=== PATIENT | female | born 1970 | race Caucasian/White ===

== ENCOUNTER → 2017-02-21 | Outpatient (CLI) | payer BC ==
--- NOTE | 2017-02-21 20:14 | Diagnostic Imaging Report ---
Bilateral diagnostic mammogram with tomography. The current study was also evaluated with a Computer Aided Detection (CAD) system. COMPARISON: 10/28/2015. INDICATION: Left breast pain in the periareolar region. FINDINGS: The breasts are composed of scattered fibroglandular densities. There is no mass, architectural distortion, or suspicious cluster of calcifications. Allowing for technique and positional differences, no suspicious change is seen. IMPRESSION: Stable mammographic findings with no evidence of malignancy. Ultrasound evaluation pending. ACR BI-RADS Category 0: Incomplete. (Needs additional imaging evaluation). Result letter will be mailed to the patient. Note: At least 10% of breast cancer is not imaged by mammography. Dictated by: Dictated on workstation # [id number]
--- NOTE | 2017-02-21 20:16 | Diagnostic Imaging Report ---
Left breast ultrasound. INDICATION: Lower left breast pain. FINDINGS: The area of pain is scanned with no underlying abnormality seen. IMPRESSION: Negative study. Clinical followup is recommended. ACR BI-RADS Category 1: Negative. Dictated by: Dictated on workstation # [id number]
== END ==
LOC: RAD 14:18
PROVIDERS: ATTEND Family Medicine
DX: N64.4 Mastodynia (principal)
CPT/HCPCS: 76642; 77066

== ENCOUNTER → 2018-02-06 | Outpatient (CLI) | payer BC ==
--- NOTE | 2018-02-06 11:31 | Diagnostic Imaging Report ---
EXAMINATION: 2D and 3D bilateral screening mammography was performed with CAD. 3D tomosynthesis was also performed and reviewed. INDICATION: Routine screening. COMPARISON: 02/21/2017 and 10/28/2015. FINDINGS: Scattered fibroglandular densities are identified bilaterally. The parenchymal pattern is stable. No mass or malignant appearing microcalcifications are seen. The axillae are unremarkable. IMPRESSION: No mammographic features suspicious for malignancy are identified. ACR BI-RADS Category 1: Negative. Result letter will be mailed to the patient. Note: At least 10% of breast cancer is not imaged by mammography. Dictated by: Dictated on workstation # [id number]
== END ==
LOC: RAD 07:35
PROVIDERS: ATTEND Nurse Practitioner Family
DX: Z12.31 Encounter for screening mammogram for malignant neoplasm of breast (principal)
CPT/HCPCS: 77067

== ENCOUNTER → 2018-04-17 | Outpatient (CLI) | payer BC ==
--- NOTE | 2018-04-17 19:38 | Diagnostic Imaging Report ---
EXAMINATION: Pelvic ultrasound. INDICATION: Bilateral lower quadrant pain. FINDINGS: There are no prior studies available for comparison. The uterus is not enlarged measuring 7.9 x 4.5 x 3.3 cm. There is a vague 1.6 x 1.2 x 1.5 cm area of slightly altered echogenicity along the posterior aspect of the uterine body. This finding is of uncertain etiology. This could be related to scanning artifact alone. The possibility that this is secondary to a fibroid would be less likely but should still be considered. If further imaging is desired, then MRI will be recommended. There is no other focal mass involving the uterus. The endometrial lining itself is not thickened measuring 4 mm. The left ovary is identified. There is a 1.0 x 1.4 x 0.7 cm benign-appearing cyst associated with the left ovary. The right ovary could not be visualized. There is no solid pelvic mass or free fluid collection evident. IMPRESSION: 1. The small area of slightly altered echogenicity along the posterior aspect of the uterine body is of uncertain etiology. Considerations and recommendations as above. 2. There is a small cyst associated with the left ovary. There is no acute pelvic abnormality noted otherwise. 3. The right ovary was not visualized. Dictated by: Dictated on workstation # [id number]
== END ==
LOC: RAD 13:52
PROVIDERS: ATTEND Family Medicine
DX: N83.202 Unspecified ovarian cyst, left side (principal)
CPT/HCPCS: 76830; 76856

== ENCOUNTER → 2018-04-28 | Outpatient (CLI) | payer BC ==
--- NOTE | 2018-04-28 09:07 | Diagnostic Imaging Report ---
PROCEDURE: US Gallbladder. TECHNIQUE: Multiple real-time grayscale images were obtained over the right upper quadrant in various projections. INDICATION: Right upper quadrant pain for one month. FINDINGS: Study is somewhat compromised due to overlying bowel gas and patient body habitus. The liver is normal in size at 16.3 cm. No discrete liver mass is identified. The portal vein appears to be patent and shows normal direction of flow. The gallbladder does contain a single large stone approximately 2.2 cm in diameter. No gallbladder wall thickening is seen. No biliary ductal dilatation is identified. The pancreas is obscured by bowel gas. The right kidney is unremarkable. There is no ascites. IMPRESSION: Somewhat limited study, described above. There is cholelithiasis but no evidence of acute cholecystitis. Dictated by: Dictated on workstation # [id number]
== END ==
LOC: RAD 07:56
PROVIDERS: ATTEND Obstetrics & Gynecology
DX: K80.20 Calculus of gallbladder without cholecystitis without obstruction (principal)
CPT/HCPCS: 76705

== ENCOUNTER 2018-05-10 12:00 | Outpatient (CLI) | payer BC ==
[~2018-05-10] VITALS: Ht 165.1 cm; Wt 132.4 kg
[2018-05-10] MEDS ORDERED: MEDR2.5T6 PO (12:36)
[2018-05-10] MEDS ORDERED: TOPI25TA10 PO (12:36)
[2018-05-10] MEDS ORDERED: PROP40TA5 PO (12:36)
[2018-05-10] MEDS ORDERED: SPIR25TA5 PO (12:36)
[2018-05-10] MEDS ORDERED: ESTR0.5T PO (12:36)
[2018-05-10] MEDS ORDERED: ESOM20TA PO (12:36)
[2018-05-10] MEDS ORDERED: FLUT9.9S NS (12:36)
[2018-05-10] MEDS ORDERED: METF-397 PO (12:36)
[2018-05-10] MEDS ORDERED: CETI10TA20 PO (12:36)
== END 2018-05-10 12:37 | disposition home or self-care (01) ==
LOC: PREOP 12:00
PROVIDERS: ATTEND Surgery
DX: Z01.818 Encounter for other preprocedural examination (principal)

== ENCOUNTER 2018-05-15 07:28 | Day surgery (SDC) | payer BC ==
[~2018-05-15] VITALS: Ht 165.1 cm; Wt 132.4 kg
[~2018-05-15 07:28] MED LIST: CETI10TA20 PO; ESOM20TA PO; ESTR0.5T PO; FLUT9.9S NS; MEDR2.5T6 PO; METF-397 PO; PROP40TA5 PO; SPIR25TA5 PO; TOPI25TA10 PO
--- OUTSIDE RECORDS SUMMARY | 2018-05-15 07:32 | XMS REPORT ---
Author Author JUNO ORTIZ Organization [employer] Address Unknown Phone Unavailable Care Team Providers Care Waxing Machine Operator Name Role Phone JUNO ORTIZ CP Unavailable Allergies, Adverse Reactions, Alerts Substance Reaction Event Type N.K.D.A. Info Not Available Non Drug Allergy Problems Problem Type Condition Code Onset Dates Condition Status Problem Allergic rhinitis, cause unspecified 477.9 Active Assessment Eustachian tube dysfunction H69.80 Active Problem Cough 786.2 Active Problem Acute pharyngitis 462 Active Problem Obstructive chronic bronchitis, with (acute) exacerbation 491.21 Active Problem Unspecified otalgia 388.70 Active Problem Dysfunction of Eustachian tube 381.81 Active Problem Need for prophylactic vaccination and inoculation, Influenza V04.81 Active Problem Screening examination for pulmonary tuberculosis V74.1 Active Medications Medication Code System Code Instructions Start Date End Date Status Dosage Fluticasone Propionate [facility] [address]-68 50 MCG/ACT Nasally Twice a day May 16, 2015 1 spray in each nostril Procedures Procedure Coding System Code Date THER/PROPH/DIAG INJ, SC/IM CPT-4 14620 May 23, 2015 Office Visit, Est Pt., Level 3 CPT-4 93820 May 23, 2015 DEPO MEDROL 80 MG/ML CPT-4 J1040 May 23, 2015 Vital Signs Date/Time: May 23, 2015 Temperature 98.4 F Weight 276 lbs Height 64 in BMI 47.37 Index Blood Pressure Diastolic 78 mmHg Blood Pressure Systolic 132 mmHg Cardiac Monitoring Heart Rate 110 bpm Results No Known Results Summary Purpose [employer] Submission
--- OUTSIDE RECORDS SUMMARY | 2018-05-15 07:32 | XMS REPORT ---
Author Author JUNO ORTIZ [facility] [employer] Address Unknown Phone Unavailable Care Team Providers Care Smoke Inspector Name Role Phone JUNO ORTIZ CP Unavailable Allergies No Known Allergies Problems Problem Type Condition Code Onset Dates Condition Status Problem Allergic rhinitis, cause unspecified 477.9 Active Assessment Encounter for immunization Z23 Active Problem Cough 786.2 Active Problem Acute pharyngitis 462 Active Problem Obstructive chronic bronchitis, with (acute) exacerbation 491.21 Active Problem Unspecified otalgia 388.70 Active Problem Dysfunction of Eustachian tube 381.81 Active Problem Need for prophylactic vaccination and inoculation, Influenza V04.81 Active Problem Screening examination for pulmonary tuberculosis V74.1 Active Medications No Known Medications Procedures Procedure Coding System Code Date SINGLE IMMUNIZATION ADMIN CPT-4 02169 Jun 06, 2015 PCV 13 CPT-4 37354 Jun 06, 2015 Results No Known Results Immunizations Vaccine Administration Date PCV 13 Jun 06, 2015 Summary Purpose [employer] Submission
--- OUTSIDE RECORDS SUMMARY | 2018-05-15 07:32 | XMS REPORT ---
Author Author JUNO ORTIZ [facility] [employer] Address Unknown Phone Unavailable Care Team Providers Care Lathe Turner Name Role Phone JUNO ORTIZ Unavailable Allergies, Adverse Reactions, Alerts Substance Reaction Event Type N.K.D.A. Info Not Available Non Drug Allergy Problems Problem Type Condition Code Onset Dates Condition Status Problem Allergic rhinitis, cause unspecified 477.9 Active Assessment Cough R05 Active Problem Cough 786.2 Active Problem Acute pharyngitis 462 Active Problem Obstructive chronic bronchitis, with (acute) exacerbation 491.21 Active Problem Unspecified otalgia 388.70 Active Problem Dysfunction of Eustachian tube 381.81 Active Problem Need for prophylactic vaccination and inoculation, Influenza V04.81 Active Problem Screening examination for pulmonary tuberculosis V74.1 Active Medications Medication Code System Code Instructions Start Date End Date Status Dosage Diflucan [facility] [address]-39 150 MG Orally every 3 days Jan 30, 2016Feb 1 tablet Metformin HCl [facility] [address]-31 500 MG Orally Twice a day 1 tablet with meals Zyrtec Allergy [facility] [address]-89 10 MG Orally Once a day 1 tablet Doxycycline [facility] [address]-93 100 mg Orally twice a day Jan 30, 2016 Feb 13, 2016 1 capsule on an empty stomach in the morning Tessalon Perles [facility] [address]-07 100 MG Orally Three times a day Jan 30, 2016 Feb 29, 2016 1-2 capsule as needed Vitamin D Maintenance [facility] [address] THERAPY PACK Orally not defined Fluticasone Propionate [facility] [address]-45 50 MCG/ACT Nasally Twice a day May 16, 2015 1 spray in each nostril Spironolactone [facility] [address]-89 50 MG Orally Once a day 1 tablet Albuterol Sulfate HFA [facility] [address]-00 108 (90 Base) MCG/ACT Inhalation every 4 hrs Jan 30, 2016 2 puffs as needed Procedures Procedure Coding System Code Date DEPO MEDROL 80 MG/ML CPT-4 J1040 Jan 30, 2016 THER/PROPH/DIAG INJ, SC/IM CPT-4 28539 Jan 30, 2016 MEASURE BLOOD OXYGEN LEVEL CPT-4 66352 Jan 30, 2016 Office Visit, Est Pt., Level 3 CPT-4 61518 Jan 30, 2016 Vital Signs Date/Time: Jan 30, 2016 Cardiac Monitoring Heart Rate 78 bpm Weight 286 lbs Height 64 in BMI 49.09 Index Oximetry 98 % Blood Pressure Diastolic 82 mmHg Blood Pressure Systolic 138 mmHg Results No Known Results Summary Purpose [employer] Submission
--- OUTSIDE RECORDS SUMMARY | 2018-05-15 07:32 | XMS REPORT ---
Author Author JUNO ORTIZ [facility] [employer] Address Unknown Phone Unavailable Care Team Providers Care Central Melt Specialist Name Role Phone JUNO ORTIZ CP Unavailable Allergies No Known Allergies Problems Problem Type Condition Code Onset Dates Condition Status Problem Allergic rhinitis, cause unspecified 477.9 Active Problem Cough 786.2 Active Problem Acute pharyngitis 462 Active Problem Obstructive chronic bronchitis, with (acute) exacerbation 491.21 Active Problem Unspecified otalgia 388.70 Active Problem Dysfunction of Eustachian tube 381.81 Active Problem Need for prophylactic vaccination and inoculation, Influenza V04.81 Active Problem Screening examination for pulmonary tuberculosis V74.1 Active Medications Medication Code System Code Instructions Start Date End Date Status Dosage Fluticasone Propionate [facility] [address]-94 50 MCG/ACT Nasally Twice a day May 16, 2015 1 spray in each nostril Results No Known Results Summary Purpose [employer] Submission
--- OUTSIDE RECORDS SUMMARY | 2018-05-15 07:32 | XMS REPORT ---
Author Author JUNO ORTIZ [facility] [employer] Address [address] [place] [address] Care Team Providers Care Testing Lead Name Role Phone JUNO ORTIZ Unavailable PROBLEMS Type Condition ICD9-CM Code [id number] Code Onset Dates Condition Status SNOMED Code Problem Need for prophylactic vaccination and inoculation, Influenza V04.81 Active 192483762 Problem Screening examination for pulmonary tuberculosis V74.1 Active 518815761 Problem Allergic rhinitis, cause unspecified 477.9 Active 03277125 Problem Dysfunction of Eustachian tube 381.81 Active 43812602 Problem Obstructive chronic bronchitis, with (acute) exacerbation 491.21 Active 759210251 Problem Cough 786.2 Active 11442416 Problem Unspecified otalgia 388.70 Active 35814690 Problem Acute pharyngitis 462 Active 958978282 ALLERGIES No Information SOCIAL HISTORY Never Assessed PLAN OF CARE VITAL SIGNS MEDICATIONS Medication Instructions Dosage Frequency Start Date End Date Duration Status Fluticasone Propionate 50MCG/ACT Nasally Twice a day 1 spray in each nostril 12h 90 days Active RESULTS No Results PROCEDURES No Known procedures IMMUNIZATIONS No Known Immunizations MEDICAL (GENERAL) HISTORY Type Description Date Medical History eustachian tube dysfunction Medical History Mycoplasm
--- OUTSIDE RECORDS SUMMARY | 2018-05-15 07:32 | XMS REPORT ---
Author Author JUNO ORTIZ [facility] [employer] [place] Address [address] [place] [address] Care Team Providers Care Employer Relations Representative Name Role Phone JUNO ORTIZ Unavailable PROBLEMS Type Condition ICD9-CM Code OCI54-HA Code Onset Dates Condition Status SNOMED Code Problem Need for prophylactic vaccination and inoculation, Influenza V04.81 Active 158234218 Problem Screening examination for pulmonary tuberculosis V74.1 Active 649024137 Problem Allergic rhinitis, cause unspecified 477.9 Active 55211433 Problem Dysfunction of Eustachian tube 381.81 Active 08336317 Problem Obstructive chronic bronchitis, with (acute) exacerbation 491.21 Active 966167945 Problem Cough 786.2 Active 45239325 Problem Unspecified otalgia 388.70 Active 82312801 Problem Acute pharyngitis 462 Active 413047638 ALLERGIES No Information SOCIAL HISTORY Never Assessed PLAN OF CARE VITAL SIGNS MEDICATIONS Unknown Medications RESULTS No Results PROCEDURES No Known procedures IMMUNIZATIONS No Known Immunizations MEDICAL (GENERAL) HISTORY Type Description Date Medical History eustachian tube dysfunction Medical History Mycoplasm
[2018-05-15] MEDS ORDERED: NS IV 500 ML 500 ML ONE (07:35)
[2018-05-15] MEDS ORDERED: NS IV 500 ML 500 ML IV PRN (07:52)
[2018-05-15 07:57] VITALS: BP 141/88
[2018-05-15] MEDS ORDERED: MIDAZOLAM 2 MG/2 ML (VERSED) VIAL IVP ONE (08:00)
[2018-05-15] MEDS ORDERED: fentaNYL INJECTION 100 MCG/2 ML AMP IVP ONE (08:00)
--- NOTE | 2018-05-15 08:34 | History & Physicial ---
History of Present Illness History of Present Illness Reason for visit/HPI To undergo colonoscopy regarding a change in her bowel habits. Date of Admission 05/15/18 Date Seen by a Provider: May 15, 2018 Time Seen by a Provider: 08:33 I consulted on this patient on 05/15/18 08:33 Attending Physician Rebecca Lizarraga MD Admitting Physician Kourtney Coleman DO Consult Allergies and Home Medications Allergies Coded Allergies: No Known Drug Allergies (Unverified , 05/10/18) Home Medications Cetirizine HCl 10 Mg Tablet, 10 MG PO DAILY, (Reported) Esomeprazole Magnesium 20 Mg Tablet.dr, 20 MG PO DAILY, (Reported) Estradiol Unknown Strength Tablet, 1 TAB PO DAILY, (Reported) Fluticasone Propionate 9.9 Ml [place].susp, 1 SPRAY NS BID, (Reported) 1 SPRAY EACH NARE DAILY Medroxyprogesterone Acetate Unknown Strength Tablet, 1 TAB PO DAILY, (Reported) Metformin HCl 500 Mg Tablet, 500 MG PO DAILY, (Reported) Propranolol HCl 40 Mg Tablet, 40 MG PO HS, (Reported) Spironolactone 25 Mg Tablet, 25 MG PO DAILY, (Reported) Topiramate 25 Mg Tablet, 25 MG PO HS, (Reported) Patient Home Medication List Home Medication List Reviewed: Yes Past Gimmztj-Hvmrfx-Lyvsms Hx Patient Social History Marrital Status: Employed/Student: employed Alcohol Use: Denies Use Recreational Drug Use: No Smoking Status: Never a Smoker 2nd Hand Smoke Exposure: No Recent Foreign Travel: No Contact w/other who traveled: No Recent Hopitalizations: No Recent Infectious Disease Expo: No Immunizations Up To Date Tetanus Booster (TDap): Less than 5yrs Date of Influenza Vaccine: Feb 07, 2018 Seasonal Allergies Seasonal Allergies: Yes Surgeries Yes Appendectomy Respiratory No Currently Using CPAP: No Cardiovascular No Neurological No Reproductive System Sexually Transmitted Disease: No HIV/AIDS: No Female Reproductive Disorders: Denies ENGINEERING GEOLOGIST History: Menopausal Genitourinary No Gastrointestinal Yes Musculoskeletal No Endocrine History of Endocrine Disorders: No HEENT History of HEENT Disorders: No Hearing Impairment: Denies Cancer No Psychosocial History of Psychiatric Problem: No Integumentary History of Skin or Integumenta: No Blood Transfusions History of Blood Disorders: No Review of Systems Constitutional: no symptoms reported Respiratory: no symptoms reported Cardiovascular: no symptoms reported Gastrointestinal: see HPI Genitourinary: no symptoms reported Musculoskeletal: no symptoms reported Skin: no symptoms reported Psychiatric/Neurological: No Symptoms Reported Physical Exam Vital Signs Vital Signs - First Documented 05/15/18 07:57 Temp 96.8 Pulse 69 Resp 18 B/P (MAP) 141/88 (105) Pulse Ox 95 O2 Delivery Room Air Capillary Refill : Height, Weight, BMI Height: 5'5.00" Weight: 292lbs. 0.0oz. 132.844235qt; 48.6 BMI Method: General Appearance: No Apparent Distress Neck: Normal Inspection Respiratory: Lungs Clear Cardiovascular: Regular Rate, Rhythm Gastrointestinal: Non Tender, Soft Rectal: Deferred Extremity: Normal Inspection Neurologic/Psychiatric: Alert, Oriented x3 Skin: Warm/Dry Assessment/Plan Assessment and Plan Lady with a change in her bowel habits. For colonoscopy. Admission Diagnosis Admission Status: Other (Same Day Surgery) REBECCA LIZARRAGA MD May 15, 2018 08:34
--- NOTE | 2018-05-15 08:35 | Conscious Sedation/ASA ---
Conscious Sedation Pre-Proced Time 08:34 ASA Score 2 For ASA 3 and 4: Consider anesthesia and medical clearance. Also, for patients with a history of failed moderate sedation consider anesthesia. Airway Lungs Heart ASA score ASA 1: a normal healthy patient ASA 2: a patient with a mild systemic disease (mid diabetes, controlled hypertension, obesity ASA 3: a patient with a severe systemic disease that limits activity (angina , COPD, prior Myocardial infarction) ASA 4: a patient with an incapacitating disease that is a constant threat to life (CHF, renal failure) ASA 5: a moribund patient not expected to survive 24 hrs. (ruptured aneurysm) ASA 6: a declared brain patient whose organs are being harvested. For emergent operations, add the letter E after the classification Mallampati Classification Grade 1 Sedation Plan Discussed options with patient/fam The patient is an appropriate candidate to undergo the planned procedure, sedation, and anesthesia. The patient immediately re-assessed prior to indication. REBECCA LANG MD May 15, 2018 08:34
--- NOTE | 2018-05-15 08:46 | Endo Procedure Record ---
Endo Procedure Report Date of Procedure Last Colonoscopy: No May 15, 2018 Surgeon (s) REBECCA LANG MD Post Procedure/Op Diagnosis Very few sigmoid diverticulae Procedure Performed Colonoscopy to cecum Description of Procedure Anesthesia Type: Conscious Sedation Specimen(s) collected/removed None Description of the Procedure Indication for the procedure: This lady came in for colonoscopy to evaluate a change in her bowel habits, with alternating diarrhea and constipation. She denied any rectal bleeding, not any family history of colon cancer. Informed consent was obtained after reviewing the procedure in detail. Description of the procedure: She was placed in left lateral decubitus position and her vital signs were monitored. Conscious sedation was achieved using Versed and fentanyl. Digital rectal examination was unremarkable. The colonoscope was then introduced in the rectum and advanced to the cecum. The quality of bowel preparation was excellent. The scope was then withdrawn slowly and the mucosa examined in a systematic fashion. Findings: Very few sigmoid diverticulae. She tolerated the procedure well and was taken back to the nursing area in a stable condition. Impression: Change in bowel habits. Insignificant diverticulosis. No family history. Recommend screening colonoscopy in 10 years. Copy Copies To 1: OMAIRA LUNA XAVIER M MD May 15, 2018 08:46
--- NOTE | 2018-05-15 08:47 | Discharge Inst-Simple/Standard ---
Discharge Inst-Standard Discharge Medications New, Converted or Re-Newed RX: Other Patient Instructions/Follow Up Plan of Care/Instructions/FU: Screening colonoscopy in 10 years Activity as Tolerated: Yes Discharge Diet: No Restrictions REBECCA LANG MD May 15, 2018 08:47
[2018-05-15 09:00] VITALS: BP 130/71
[2018-05-15 09:30] VITALS: BP 130/96
[2018-05-15 09:49] VITALS: BP 130/96
== END 2018-05-15 09:50 | disposition home or self-care (01) ==
LOC: ENDO 07:28
PROVIDERS: ATTEND Surgery
DX: K57.30 Diverticulosis of large intestine without perforation or abscess without bleeding (principal); R19.4 Change in bowel habit; Z79.899 Other long term (current) drug therapy

== ENCOUNTER → 2019-04-24 | Outpatient (CLI) | payer BC ==
--- NOTE | 2019-04-24 15:29 | Diagnostic Imaging Report ---
INDICATION: Routine screening. COMPARISON: 02/06/2018 and 02/21/2017. TECHNIQUE: 2D and 3D bilateral screening mammography was performed with CAD. FINDINGS: Scattered fibroglandular densities are identified bilaterally. The parenchymal pattern is stable. No mass or malignant appearing microcalcifications are seen. The axillae are unremarkable. IMPRESSION: No mammographic features suspicious for malignancy are identified. ACR BI-RADS Category 1: Negative. Result letter will be mailed to the patient. Note: At least 10% of breast cancer is not imaged by mammography. Dictated by: Dictated on workstation # [id number]
== END ==
LOC: RAD 13:10
PROVIDERS: ATTEND Family Medicine
DX: Z12.31 Encounter for screening mammogram for malignant neoplasm of breast (principal)
CPT/HCPCS: 77067

== ENCOUNTER → 2020-05-30 | Outpatient (CLI) | payer BC ==
[~2020-05-30] MED LIST changes: -CETI10TA20 PO; +CETI10TA49 PO
[2020-05-30 09:57] LABS: BASOPHILS % (AUTO) 1 % (0-10); EOSINOPHILS # (AUTO) 0.3 10^3/uL (0.0-0.3); EOSINOPHILS % (AUTO) 4 % (0-10); HEMATOCRIT 40 % (35-52); HEMOGLOBIN 13.6 g/dL (11.5-16.0); LYMPHOCYTES % (AUTO) 33 % (12-44); MEAN CORPUSCULAR HEMOGLOBIN 32 pg (25-34); MEAN CORPUSCULAR HGB CONC 34 g/dL (32-36); MEAN CORPUSCULAR VOLUME 94 fL (80-99); MEAN PLATELET VOLUME 9.5 fL (9.0-12.2); MONOCYTES # (AUTO) 0.5 10^3/uL (0.0-1.0); MONOCYTES % (AUTO) 9 % (0-12); NEUTROPHILS # (AUTO) 3.2 10^3/uL (1.8-7.8); NEUTROPHILS % (AUTO) 53 % (42-75); PLATELET COUNT 269 10^3/uL (130-400)
[2020-05-30 10:16] LABS: BILIRUBIN,TOTAL 0.9 MG/DL (0.1-1.0); CALCIUM 9.2 MG/DL (8.5-10.1); CREATININE SERUM 1.03 MG/DL (0.60-1.30); POTASSIUM 4.2 MMOL/L (3.6-5.0)
--- NOTE | 2020-05-30 10:18 | Diagnostic Imaging Report ---
INDICATION: Cough and dyspnea, history of Covid infection. Frontal chest obtained at 10:08 a.m. is compared to 02/28/2012. FINDINGS: Heart and mediastinal silhouette are normal in appearance. Lungs appear clear. There is no pneumothorax or pleural fluid. IMPRESSION: Negative chest. Dictated by: Dictated on workstation # [id number]
== END ==
LOC: RAD 09:40
PROVIDERS: ATTEND Nurse Practitioner Family
DX: E55.9 Vitamin D deficiency, unspecified (principal); R05 Cough; R06.00 Dyspnea, unspecified; R73.9 Hyperglycemia, unspecified; Z86.16 Personal history of COVID-19
CPT/HCPCS: 36415; 71045; 80053; 82306; 83036; 84443; 85025; 87581

== ENCOUNTER → 2020-06-30 | Outpatient (CLI) | payer BC ==
--- NOTE | 2020-07-01 12:54 | Diagnostic Imaging Report ---
Indication: Routine screening. Comparison is made with prior mammogram from 04/24/2019 and 02/06/2018. 2-D and 3-D bilateral screening mammography was performed with CAD. Scattered fibroglandular densities are identified bilaterally. The parenchymal pattern is stable. No mass or malignant appearing microcalcifications are seen. Axillae are unremarkable. IMPRESSION: BI-RADS Category 1 No mammographic features suspicious for malignancy are identified. ACR BI-RADS Category 1: Negative. Result letter will be mailed to the patient. Note: At least 10% of breast cancer is not imaged by mammography. Dictated by: Dictated on workstation # [id number]
== END ==
LOC: RAD 15:15
PROVIDERS: ATTEND Family Medicine
DX: Z12.31 Encounter for screening mammogram for malignant neoplasm of breast (principal)
CPT/HCPCS: 77063; 77067

== ENCOUNTER 2020-12-03 05:39 | Outpatient (CLI) | payer BC ==
[~2020-12-03] VITALS: Ht 162.6 cm; Wt 138.2 kg
[2020-12-03] MEDS ORDERED: RT-ALBUINH IH (11:57)
[2020-12-03] MEDS ORDERED: ASCO250T55 PO (11:57)
[2020-12-03] MEDS ORDERED: L.AC1CAP6 PO (11:57)
[2020-12-03] MEDS ORDERED: ASPI-999 PO (11:57)
[2020-12-03] MEDS ORDERED: MV-M1TAB20 PO (11:57)
== END 2020-12-03 12:30 | disposition home or self-care (01) ==
LOC: PREOP 05:39
PROVIDERS: ATTEND Surgery
DX: Z01.818 Encounter for other preprocedural examination (principal)

== ENCOUNTER 2020-12-10 09:30 | Day surgery (SDC) | payer BC ==
[~2020-12-10] VITALS: Ht 162.6 cm; Wt 138.2 kg
[2020-12-10] VITALS (11 sets, daily range): BP systolic 118–147; BP diastolic 63–92
[~2020-12-10 09:30] MED LIST changes: +ASCO250T55 PO; +ASPI-999 PO; +L.AC1CAP6 PO; +MV-M1TAB20 PO; +RT-ALBUINH IH
[2020-12-10] MEDS ORDERED: ceFAZolin 2 GM IV Premixed 50 ML IV ONE (10:00)
[2020-12-10] MEDS: LACTATED RINGERS 1,000 ML IV PRN ×2 (10:25→13:00)
--- NOTE | 2020-12-10 11:32 | Progress Note-Pre Operative ---
Pre-Operative Progress Note H&P Reviewed The H&P was reviewed, patient examined and no changes noted. Time Seen by Provider: 11: Date H&P Reviewed: Dec 10, 2020 Time H&P Reviewed: : Pre-Operative Diagnosis: Cholelithiasis/Cholecystitis LANE ANDERSON DO Dec 10, 2020 11:32
[2020-12-10] MEDS ORDERED: LIDOCAINE/EPI 1%-1:100,000 (XYLOCAINE) 20ML ONE (11:52)
[2020-12-10] MEDS ORDERED: FAMOTIDINE 20MG/2ML IV (PEPCID) IV ONE (12:00)
[2020-12-10] MEDS ORDERED: ONDANSETRON 4 MG/2 ML (SDV) Z0FRAN IV ONE (12:00)
[2020-12-10] MEDS ORDERED: LACTATED RINGERS 1,000 ML IV PRN (12:00)
[2020-12-10] MEDS ORDERED: SCOPOLAMINE 1.5 MG (TRANSDERM-SCOP) PATCH TOP ONE (12:00)
[2020-12-10] MEDS ORDERED: ONDANSETRON 4 MG/2 ML (SDV) Z0FRAN ONE ×2 (12:05→12:09)
[2020-12-10] MEDS ORDERED: FAMOTIDINE 20MG/2ML IV (PEPCID) ONE (12:06)
[2020-12-10] MEDS ORDERED: SCOPOLAMINE 1.5 MG (TRANSDERM-SCOP) PATCH ONE (12:06)
[2020-12-10] MEDS ORDERED: fentaNYL INJ 100 MCG/2 ML AMP ONE (12:09)
[2020-12-10] MEDS ORDERED: ROCURONIUM 10 MG/ML 5 ML SYRINGE IV ONE (12:09)
[2020-12-10] MEDS ORDERED: MIDAZOLAM 2 MG/2 ML (VERSED) VIAL ONE (12:09)
[2020-12-10] MEDS ORDERED: LIDOCAINE PF 2% 5 ML (XYLOCAINE) VIAL ONE (12:09)
[2020-12-10] MEDS ORDERED: NEOSTIGMINE 3 MG/3 ML VIAL ONE (12:09)
[2020-12-10] MEDS ORDERED: GLYCOPYRROLATE 0.2 MG/ML (ROBINUL) 2 ML VIAL ONE (12:09)
[2020-12-10] MEDS ORDERED: proPOfol 200 MG/20 ML (DIPRIVAN) VIAL IV ONE (12:09)
[2020-12-10] MEDS ORDERED: IOHEXOL 300 MG/ML 30 ML (OMNIPAQUE 300) VIAL INJ ONE (12:45)
--- NOTE | 2020-12-10 13:08 | Progress Note-Post Operative ---
Post-Operative Progess Note Surgeon (s)/Crinkling Machine Operator (s) Surgeon LANE ANDERSON DO Crinkling Machine Operator: Deacon Pre-Operative Diagnosis Cholelithiasis/Cholecystitis Post-Operative Diagnosis same Procedure & Operative Findings Date of Procedure 12/10/20 Procedure Performed/Findings PROCEDURE: Laparoscopic cholecystectomy with intraoperative cholangiogram. COMPLICATIONS: None. PROCEDURE: The patient was taken to the operating suite and was prepped and draped in sterile fashion. A surgical pause was performed. Just superior to the umbilicus, a 12 mm incision was made. Dissection was taken down to the fascia, which was then scored and grasped with a Cindi and the abdomen was then entered. A 0 Vicryl suture was placed in a hhtbqk-cn-ryfja fashion and a Crawford trocar was placed and secured. Pneumoperitoneum was achieved. A 5mm trochar place in the subxyphoid and 2 in the right upper quadrant. The gallbladder was then grasped and elevated. The cystic duct, and cystic artery were then dissected out. Clip was placed on the distal portion of the cystic duct which was then partially transected. An arrow catheter was inserted into the duct. The cholangiogram was then performed. No filing defects and contrast made its way into the duodenum. Catheter removed. Clips were placed on proximal portion of the cystic duct and then the duct was then transected. Clips were placed along the proximal and distal portion of the cystic artery which was then transected. Hook cautery was used to dissect the gallbladder from the gallbladder fossa achieving hemostasis. The gallbladder was placed in an Endobag and removed through the 12 mm trocar site. The abdomen was then reinspected. Copious amounts of irrigation were used to irrigate the abdomen and there were no signs of active bleeding. Hemostasis had been achieved. The 12 mm fascial defect was then closed with 0 Vicryl suture that had been placed in a itxvny-zu-vtdam fashion. The abdomen was then desufflated, the trocars were removed. The abdomen was then washed and dried. The skin was then closed using 4-0 Monocryl in a subcuticular fashion. The abdomen was washed and dried and Skin Affix was place over incisions. Patient tolerated the procedure well without any complications and was taken to the recovery room in stable condition. Dr. Worthy assisted on this case helping to make incisions, close incisions, identify anatomy and hold anatomy out of the way. Anesthesia Type GET Estimated Blood Loss Estimated blood loss (mL): scant Specimens/Packing Specimens Removed GB and contents LANE ANDERSON DO Dec 10, 2020 13:08
[2020-12-10] MEDS ORDERED: ACHD5005 PO (13:09)
--- NOTE | 2020-12-10 13:10 | Discharge Inst-Surgical ---
Discharge Inst-Surgical Depart Medication/Instructions New, Converted or Re-Newed RX: Transmitted to Pharmacy Patient Instructions Follow up Appt: Make appointment for 1 week. [phone] Instructions: No lifting greater than 20 pounds. No strenuous activity. May shower in 24 hours, no tub bath or soaking. Use incentive spirometer at home as directed. No Smoking Skin/Wound Care: May remove bandages in am. You need to leave the Dermabond on incision it will fall off on it's own. Symptoms to Report: Appetite Changes, Extremity Discoloration, Numbness/Tingling, Swelling Increased, Bleeding Excessive, Eyesight Changes, Pain Increased, Urine Color Change, Constipation(Persistent), Fever over 101 degree F, Pain/Pressure in chest, Urinating Difficulty, Cough Up/Vomit Blood, Heart Beat Irreg/Pounding, Pain/Pressure in jaw, Cramps in feet or legs, Lightheadedness, Pain/Pressure in shoulder, Diarrhea(Persistent), Memory Changes Suddenly, Questions/Concerns, Weight gain consecutive days, Dizziness/Fainting, Nausea/Vomiting, Shortness of Breath, Weight gain over 2 pounds If questions or concerns contact your physician Or seek help at emergency department. Activity Activity as Tolerated: Yes Activity Instructions: Avoid Stress to Incision Driving Instructions: No Driving/Refer to Diet Discharge Diet: Avoid Fatty Foods, Low Fat/Low Cholesterol Diet After 24 Hours: Clear Liquid if Nauseous If Any Problems/Questions/Issu: Contact Your Physician, Go to Emergency Room Skin/Wound Care Infection Signs and Symptoms: Increased Redness, Foul Odor of Wound, Increased Drainage, Skin Itchy or Has a Rash, Increased Swelling, Temperature Above 101 F Wound Care Comment: heating pad to shoulder or neck for pain tonight Bathing Instructions: Shower Stitches/Alberto/Dermabond Dis: Dermabond Ice Pack: Ice On and Off Site LANE ANDERSON DO Dec 10, 2020 13:10
[2020-12-10] MEDS ORDERED: SEVOFLURANE (ULTANE) 15 ML INHAL SOLN ONE (13:15)
[2020-12-10] MEDS ORDERED: ONDANSETRON 4 MG/2 ML (SDV) Z0FRAN IVP PRN (13:30)
[2020-12-10] MEDS ORDERED: PROMETHAZINE INJ 25 MG/ML (PHENERGAN) AMP IVP ONE (13:30)
[2020-12-10] MEDS ORDERED: MEPERIDINE (DEMEROL) INJ 50 MG/ML IVP ONE (13:30)
[2020-12-10] MEDS ORDERED: fentaNYL INJ 100 MCG/2 ML AMP IVP ONE (13:30)
[2020-12-10] MEDS ORDERED: HYDROcodone/APAP 5 MG/325 MG (LORTAB) TAB PO ONE (14:30)
[2020-12-10] MEDS ORDERED: HYDROcodone/APAP 5 MG/325 MG (LORTAB) TAB ONE (14:37)
--- NOTE | 2020-12-10 14:43 | Diagnostic Imaging Report ---
INDICATION: Cholecystectomy. FINDINGS: An operative cholangiogram was performed with the portable intensifier in Surgery. 32 images were obtained. 6.8 seconds of fluoroscopy time was used. The common bile duct and common hepatic duct appear unremarkable. There are no filling defects. There is no dilatation of the intrahepatic radicles. Contrast passes to the duodenum without obstruction. IMPRESSION: Unremarkable operative cholangiogram. Dictated by: Dictated on workstation # [id number]
--- NOTE | 2020-12-10 14:55 | Anesthesia-General Post-Op ---
General Patient Condition Mental Status/LOC: Same as Preop Cardiovascular: Satisfactory Nausea/Vomiting: Absent Respiratory: Satisfactory Pain: Controlled Complications: Absent Post Op Complications Complications None Follow Up Care/Instructions Patient Instructions None needed. Anesthesia/Patient Condition Patient Condition Patient is doing well, no complaints, stable vital signs, no apparent adverse anesthesia problems. No complications reported per nursing. NUZHAT KUMAR CRNA Dec 10, 2020 14:55
== END 2020-12-10 15:40 | disposition home or self-care (01) ==
LOC: SDC 09:30
PROVIDERS: ATTEND Surgery
DX: K80.10 Calculus of gallbladder with chronic cholecystitis without obstruction (principal); E11.9 Type 2 diabetes mellitus without complications; K21.9 Gastro-esophageal reflux disease without esophagitis; Z79.84 Long term (current) use of oral hypoglycemic drugs; Z79.899 Other long term (current) drug therapy
CPT/HCPCS: 76000; 82947; 87081; 88304

== ENCOUNTER 2021-06-17 15:21 | Emergency (ER) | payer BC ==
[~2021-06-17] VITALS: Ht 162 cm; Wt 136.0 kg
[~2021-06-17 15:21] MED LIST changes: +ACHD5005 PO
--- NOTE | 2021-06-17 16:34 | ED Neurological Problem ---
General Chief Complaint: Neurological Problems Stated Complaint: L SIDE NUMBNESS Nursing Triage Note: STATES AT 0700 TODAY SHE STARTED HAVING TINGLING ON HER LEFT SIDE. SHE THOUGHT IT MIGHT BE HER COMPOUND/COMPLEX MIGRAINES BUT SHE NEVER DEVELOPED A HEADACHE. STATES NOW SHE IS HAVING TINGLING IN THE BACK OF HER HEAD, BILAT HANDS, lEFT ARM, LEFT FOOT AND CALF. PT TALKING VERY FAST ET APPEARS ANXIOUS. Source: patient Exam Limitations: no limitations History of Present Illness Date Seen by Provider: Jun 17, 2021 Time Seen by Provider: 15:55 Initial Comments Patient is a 51-year-old female who presents to the emergency department with a chief complaint of paresthesias/numbness and tingling to the left face, left upper extremity and left lower extremity, also the right hand and right foot. Patient was at work this morning at 530 went to breakfast at 7/730 and had onset of symptoms at that time. She states they have persisted throughout the day. She has not taken anything to try and alleviate them or done anything to try and alleviate them. Patient states that she has had similar symptoms in the past with "complex migraine" usually associated with headache that is one-sided as well as some left facial droop and generalized weakness. She does not have a headache today. She has had no vision change or speech difficulty. No problems with balance or coordination. No problems with strength/weakness. No loss of bowel or bladder function. No recent fevers, chills, cough or congestion. No abdominal pain, nausea, vomiting. No urinary complaints. She did just recently get over Covid, she finished taking a steroid Dosepak as well as an antiviral on Tuesday and Tuesday of this week. This was her second round of Covid. She takes medications for menopause, hormone therapy. She is a diabetic. She takes propranolol daily for migraine prophylaxis, 40 mg of prednisone at night. All other review of systems reviewed and negative except as stated. Timing/Duration: other (10 hrs) Severity: moderate Associated Symptoms: paresthesia Allergies and Home Medications Allergies Coded Allergies: No Known Drug Allergies (Unverified , 05/10/18) Patient Home Medication List Home Medication List Reviewed: Yes Albuterol Sulfate (Proair Hfa) 1 Puff Puff, 2 PUFF IH Q4H PRN for SHORTNESS OF BREATH, (Reported) Entered as Reported by: AISHA HYMAN on 12/03/20 1157 Ascorbic Acid/Ascorbate Sodium (Vitamin C 250 mg Tablet Chew) 250 Mg Tab.chew, 1,000 MG PO DAILY, (Reported) Entered as Reported by: AISHA HYMAN on 12/03/20 1157 Cetirizine HCl (Zyrtec) 10 Mg Tablet, 10 MG PO DAILY, (Reported) Entered as Reported by: DARIO NOWAK on 05/10/18 1236 Esomeprazole Magnesium (Nexium 24Hr) 20 Mg Tablet.dr, 20 MG PO DAILY, (Reported) Entered as Reported by: DARIO NOWAK on 05/10/18 1236 Estradiol (Estradiol Tablet) Unknown Strength Tablet, 1 TAB PO DAILY, (Reported) Entered as Reported by: DARIO NOWAK on 05/10/18 1236 Fluticasone Propionate (Flonase Allergy Relief) 9.9 Ml Benkelman.susp, 1 SPRAY NS BID, (Reported) Entered as Reported by: DARIO NOWAK on 05/10/18 1236 Hydrocodone Bit/Acetaminophen (HYDROcodone/APAP 5 MG/325 MG TAB) 1 Tab Tab, 1 TAB PO Q8H PRN for PAIN-MODERATE (5-7) Prescribed by: LANE ANDERSON on 12/10/20 1309 L.acidoph & Paracasei,B.lactis (Probiotic) 1 Each Capsule, 1 EACH PO DAILY, (Reported) Entered as Reported by: AISHA HYMAN on 12/03/20 1157 Medroxyprogesterone Acetate (Medroxyprogesterone Acetate) Unknown Strength Tablet, 2.5 MG PO DAILY, (Reported) Entered as Reported by: DARIO NOWAK on 05/10/18 1236 Metformin HCl (Metformin HCl) 500 Mg Tablet, 500 MG PO DAILY, (Reported) Entered as Reported by: DARIO NOWAK on 05/10/18 1236 Mv-Mn/Iron/FA/Herbal Cmplx#190 (Vitamin D3 Complete Caplet) 1 Each Tablet, 1 EACH PO DAILY, (Reported) Entered as Reported by: AISHA HYMAN on 12/03/20 1157 Propranolol HCl (Propranolol HCl) 40 Mg Tablet, 40 MG PO HS, (Reported) Entered as Reported by: DARIO NOWAK on 05/10/18 1236 Spironolactone (Spironolactone) 25 Mg Tablet, 25 MG PO DAILY, (Reported) Entered as Reported by: DARIO NOWAK on 05/10/18 1236 Review of Systems Review of Systems Constitutional: see HPI Eyes: No Symptoms Reported Ears, Nose, Mouth, Throat: no symptoms reported Respiratory: no symptoms reported Cardiovascular: no symptoms reported Gastrointestinal: no symptoms reported Genitourinary: no symptoms reported Musculoskeletal: no symptoms reported Skin: no symptoms reported Psychiatric/Neurological: Tingling All Other Systems Reviewed Negative Unless Noted: Yes Past Kguzuvt-Rlwhqk-Jvztnw Hx Immunizations Up To Date Tetanus Booster (TDap): Less than 5yrs Seasonal Allergies Seasonal Allergies: Yes Past Medical History Surgeries: Yes (D&C; ENDOMETRIAL ABLATION ) Appendectomy Respiratory: No Currently Using CPAP: No Cardiac: No Neurological: No Female Reproductive Disorders: Denies CERTIFIED MEDICAL ASSISTANT History: Menopausal Sexually Transmitted Disease: No HIV/AIDS: No Genitourinary: No Gastrointestinal: Yes Gall Bladder Disease Musculoskeletal: No Endocrine: Yes ("ON METFORMIN PRECAUTIONARY FOR DM") Diabetes, Non-Insulin dep HEENT: No Hearing Impairment: Denies Cancer: No Psychosocial: No Integumentary: No Blood Disorders: No Physical Exam Vital Signs Vital Signs - First Documented 06/17/21 15:32 Temp 36.6 Pulse 105 Resp 16 B/P (MAP) 178/104 (128) Pulse Ox 97 O2 Delivery Room Air Capillary Refill : Less Than 3 Seconds Height, Weight, BMI Height: 5'5.00" Weight: 292lbs. 0.0oz. 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, no motor/sensory deficits, alert, normal mood/affect, oriented x 3 Crainal Nerves: normal hearing, normal speech, PERRL; No abnormal speech, No facial asymmetry, No facial droop; facial paresthesias; No facial weakness, No gaze palsy, No hearing deficit (R), No hearing deficit (L), No tongue deviation to R, No tongue deviation to L Coordination/Gait: normal finger to nose, normal gait, negative Romberg's sign Motor/Sensory: no motor deficit, no sensory deficit, no pronator drift, sensory deficit (Paresthesia) Skin: normal color, warm/dry Progress/Results/Core Measures Results/Orders Lab Results Laboratory Tests Test 06/17/21 16:20 Range/Units Sodium Level 136 135-145 MMOL/L Potassium Level 4.2 3.6-5.0 MMOL/L Chloride Level 103 98-107 MMOL/L Carbon Dioxide Level 21 21-32 MMOL/L Anion Gap 12 5-14 MMOL/L Blood Urea Nitrogen 14 7-18 MG/DL Creatinine 0.94 0.60-1.30 MG/DL Estimat Glomerular Filtration Rate 73 BUN/Creatinine Ratio 15 Glucose Level 169 H 70-105 MG/DL Calcium Level 9.3 8.5-10.1 MG/DL Magnesium Level 2.4 1.6-2.4 MG/DL My Orders Orders - DAVE IRVING MD Basic Metabolic Panel (06/17/21 16:06) Magnesium (06/17/21 16:06) Vital Signs/I&O 06/17/21 15:32 Temp 36.6 Pulse 105 Resp 16 B/P (MAP) 178/104 (128) Pulse Ox 97 O2 Delivery Room Air Blood Pressure Mean: 128 Progress Progress Note #1: Time: 16:34 Progress Note I did discuss with the patient work-up of "stroke" and did not think that she met criteria to need an emergent CT of the brain. That stroke does not present with paresthesias that are "bilateral". I have a feeling this is more related to her "complex migraines". She states she thinks she may be having a painless migraine. She declines medications for headache at this time. She normally uses an Excedrin medication for rescue of her headaches. She would like to just wait it out. I am checking a chemistry with a magnesium since she just came off of steroids. This will check electrolytes, sugar and renal function. Her vital signs are stable although she is a little bit hypertensive at 160/91. I have encouraged her to call Dr. Coleman's office for a follow-up appointment. I have given her return precautions to include if she develops weakness, headache, speech difficulty or vision change that she needs to come back to the emergency room. She verbalized understanding. All questions are sought and answered. Progress Note #2: Time: 17:24 Progress Note Patient continues to feel some improvement in her "numbness and tingling". She remains with out any acute neurologic findings on exam. No headache. Normal vital signs. Her chemistry has been reviewed the only thing abnormal is her blood sugar at 169. I have advised her to follow-up with Dr. Coleman. She is comfortable with the plan of care. All questions are sought and answered. R eturn precautions have been provided. Departure Impression Primary Impression: Paresthesia Disposition: 01 HOME, SELF-CARE Condition: Stable Departure-Patient Inst. Referrals: OMAIRA COLEMAN DO (PCP/Family) Primary Care Physician Patient Instructions: Paresthesia (DC) Add. Discharge Instructions: Continue your daily medications as prescribed. Please come back to the emergency room if you have any additional symptoms especially of headache, fever, weakness in your extremities or any other emergent concerns develop. Please call and follow-up with Dr. Coleman tomorrow. Copy Copies To 1: OMAIRA COLEMAN KATHRYN M MD Jun 17, 2021 16:34
[2021-06-17 17:04] LABS: POTASSIUM 4.2 MMOL/L (3.6-5.0)
[2021-06-17 17:06] LABS: CALCIUM 9.3 MG/DL (8.5-10.1)
[2021-06-17 17:10] LABS: CREATININE SERUM 0.94 MG/DL (0.60-1.30)
[2021-06-17 17:13] LABS: MAGNESIUM 2.4 MG/DL (1.6-2.4)
[2021-06-17 17:34] VITALS: BP 162/96
== END 2021-06-17 17:34 | disposition home or self-care (01) ==
LOC: EDUNIT# 15:21 → ER 15:24
DX: R20.2 Paresthesia of skin (principal); E11.9 Type 2 diabetes mellitus without complications; Z79.84 Long term (current) use of oral hypoglycemic drugs
CPT/HCPCS: 36415; 80048; 83735

== ENCOUNTER 2021-12-20 22:33 | Emergency (ER) | payer BC ==
[2021-12-20 22:51] LABS: BASOPHILS # (AUTO) 0.1 10^3/uL (0.0-0.1); BASOPHILS % (AUTO) 1 % (0-10); EOSINOPHILS # (AUTO) 0.3 10^3/uL (0.0-0.3); EOSINOPHILS % (AUTO) 2 % (0-10); HEMATOCRIT 42 % (35-52); HEMOGLOBIN 14.4 g/dL (11.5-16.0); LYMPHOCYTES # (AUTO) 2.4 10^3/uL (1.0-4.0); LYMPHOCYTES % (AUTO) 22 % (12-44); MEAN CORPUSCULAR HEMOGLOBIN 31 pg (25-34); MEAN CORPUSCULAR HGB CONC 34 g/dL (32-36); MEAN CORPUSCULAR VOLUME 92 fL (80-99); MEAN PLATELET VOLUME 9.6 fL (9.0-12.2); MONOCYTES # (AUTO) 0.9 10^3/uL (0.0-1.0); MONOCYTES % (AUTO) 8 % (0-12); NEUTROPHILS # (AUTO) 7.3 10^3/uL (1.8-7.8); NEUTROPHILS % (AUTO) 67 % (42-75); PLATELET COUNT 266 10^3/uL (130-400); WHITE BLOOD COUNT 10.9 10^3/uL (4.3-11.0)
--- NOTE | 2021-12-20 22:56 | ED Chest Pain ---
General Chief Complaint: Chest Pain Stated Complaint: CHEST PAIN Source: patient Exam Limitations: no limitations History of Present Illness Date Seen by Provider: Dec 20, 2021 Time Seen by Provider: 22:39 Initial Comments Patient to the ER by EMS from home with chief complaint that since 5:00, 5-1/2 hours prior to arrival she started experiencing left breast chest pain. She been having this off and on for the past 3 days. She rates it as a 9 out of 10 when she is taking a deep breath or moving and a 7 out of 10 while at rest. She did not take anything for the pain. EMS gave her 324 mg of aspirin. They did not give her any nitroglycerin. She does not have a history of coronary disease. She has no family history of coronary disease. She denies a history of diabetes, hypertension, hyper lipidemia, smoking. She does take hormone r eplacement therapy. She did have a recent trip back from [place] [employer]. She is not having any swelling or pain in her calves. She is not having a cough, shortness of air, fevers, chills, nausea, vomiting or sick contacts. No history of blood clots or familial history of blood clots. No primary familial history of early onset coronary disease. She had her gallbladder out a couple years ago. She has had an endometrial ablation. Allergies and Home Medications Allergies Coded Allergies: No Known Drug Allergies (Unverified , 05/10/18) Patient Home Medication List Home Medication List Reviewed: Yes Albuterol Sulfate (Proair Hfa) 1 Puff Puff, 2 PUFF IH Q4H PRN for SHORTNESS OF BREATH, (Reported) Entered as Reported by: AISHA HYMAN on 12/03/20 1157 Ascorbic Acid/Ascorbate Sodium (Vitamin C 250 mg Tablet Chew) 250 Mg Tab.chew, 1,000 MG PO DAILY, (Reported) Entered as Reported by: AISHA HYMAN on 12/03/20 1157 Cetirizine HCl (Zyrtec) 10 Mg Tablet, 10 MG PO DAILY, (Reported) Entered as Reported by: DARIO NOWAK on 05/10/18 1236 Esomeprazole Magnesium (Nexium 24Hr) 20 Mg Tablet.dr, 20 MG PO DAILY, (Reported) Entered as Reported by: DARIO NOWAK on 05/10/18 1236 Estradiol (Estradiol Tablet) Unknown Strength Tablet, 1 TAB PO DAILY, (Reported) Entered as Reported by: DARIO NOWAK on 05/10/18 1236 Fluticasone Propionate (Flonase Allergy Relief) 9.9 Ml [place] Path.susp, 1 SPRAY NS BID, (Reported) Entered as Reported by: DARIO NOWAK on 05/10/18 1236 Hydrocodone Bit/Acetaminophen (HYDROcodone/APAP 5 MG/325 MG TAB) 1 Tab Tab, 1 TAB PO Q8H PRN for PAIN-MODERATE (5-7) Prescribed by: LANE ANDERSON on 12/10/20 1309 L.acidoph & Paracasei,B.lactis (Probiotic) 1 Each Capsule, 1 EACH PO DAILY, (Reported) Entered as Reported by: AISHA HYMAN on 12/03/20 1157 Medroxyprogesterone Acetate (Medroxyprogesterone Acetate) Unknown Strength Tablet, 2.5 MG PO DAILY, (Reported) Entered as Reported by: DARIO NOWAK on 05/10/18 1236 Metformin HCl (Metformin HCl) 500 Mg Tablet, 500 MG PO DAILY, (Reported) Entered as Reported by: DARIO NOWAK on 05/10/18 1236 Mv-Mn/Iron/FA/Herbal Cmplx#190 (Vitamin D3 Complete Caplet) 1 Each Tablet, 1 EACH PO DAILY, (Reported) Entered as Reported by: AISHA HYMAN on 12/03/20 1157 Naproxen (Naprosyn) 500 Mg Tablet, 500 MG PO BID Prescribed by: NOEMÍ CANO on 12/21/21 005 Propranolol HCl (Propranolol HCl) 40 Mg Tablet, 40 MG PO HS, (Reported) Entered as Reported by: DARIO NOWAK on 05/10/18 1236 Spironolactone (Spironolactone) 25 Mg Tablet, 25 MG PO DAILY, (Reported) Entered as Reported by: DARIO NOWAK on 05/10/18 1236 Sucralfate (Carafate) 1 Gram Tablet, 1 GM PO QIDACHS Prescribed by: NOEMÍ CANO on 12/21/21 005 Review of Systems Review of Systems Constitutional: No chills, No diaphoresis, No fever, No malaise EENTM: No Blurred Vision, No Double Vision Respiratory: Denies Cough, Denies Shortness of Air Cardiovascular: See HPI, Chest Pain; Denies Edema, Denies Irregular Heart Rate, Denies Lightheadedness, Denies Palpitations, Denies Syncope Gastrointestinal: Denies Constipated, Denies Diarrhea, Denies Nausea Genitourinary: Denies Burning, Denies Discharge Musculoskeletal: No back pain, No joint pain Skin: No pruritus, No rash Psychiatric/Neurological: Denies Anxiety, Denies Depressed All Other Systems Reviewed Negative Unless Noted: Yes Past Dbetvsw-Mmvtyy-Cuqlkb Hx Patient Social History Tobacco Use?: No Use of E-Cig and/or Vaping dev: No Immunizations Up To Date Tetanus Booster (TDap): Less than 5yrs Seasonal Allergies Seasonal Allergies: Yes Past Medical History Surgeries: Yes (D&C; ENDOMETRIAL ABLATION ) Appendectomy Respiratory: No Currently Using CPAP: No Cardiac: No Neurological: No Female Reproductive Disorders: Denies [employer]ATOR History: Menopausal Sexually Transmitted Disease: No HIV/AIDS: No Genitourinary: No Gastrointestinal: Yes Gall Bladder Disease Musculoskeletal: No Endocrine: Yes ("ON METFORMIN PRECAUTIONARY FOR DM") Diabetes, Non-Insulin dep HEENT: No Hearing Impairment: Denies Cancer: No Psychosocial: No Integumentary: No Blood Disorders: No Physical Exam Vital Signs Vital Signs - First Documented 12/20/21 22:35 Temp 36.6 Pulse 83 Resp 16 B/P (MAP) 143/111 (122) Pulse Ox 99 O2 Delivery Room Air Capillary Refill : Height, Weight, BMI Height: 5'5.00" Weight: 292lbs. 0.0oz. 132.320044bw; 51.00 BMI Method: General Appearance: No Apparent Distress, WD/WN HEENT: PERRL/EOMI, Pharynx Normal, Moist Mucous Membranes Neck: Full Range of Motion, Normal Inspection Respiratory: No Chest Non Tender (Left chest wall tender to palpation, reproduces her pain m moderately); Lungs Clear, Normal Breath Sounds, No Accessory Muscle Use, No Respiratory Distress Cardiovascular: Regular Rate, Rhythm, No Edema Gastrointestinal: Normal Bowel Sounds, No Organomegaly, Non Tender, Soft Extremity: Normal Capillary Refill, Normal Inspection, No Pedal Edema Neurologic/Psychiatric: Alert, Oriented x3 Skin: Normal Color, Warm/Dry Progress/Results/Core Measures Results/Orders Lab Results Laboratory Tests Test 12/20/21 22:44 12/20/21 23:48 Range/Units White Blood Count 10.9 4.3-11.0 10^3/uL Red Blood Count 4.59 3.80-5.11 10^6/uL Hemoglobin 14.4 11.5-16.0 g/dL Hematocrit 42 35-52 % Mean Corpuscular Volume 92 80-99 fL Mean Corpuscular Hemoglobin 31 25-34 pg Mean Corpuscular Hemoglobin Concent 34 32-36 g/dL Red Cell Distribution Width 12.3 10.0-14.5 % Platelet Count 266 130-400 10^3/uL Mean Platelet Volume 9.6 9.0-12.2 fL Immature Granulocyte % (Auto) 0 % Neutrophils (%) (Auto) 67 42-75 % Lymphocytes (%) (Auto) 22 12-44 % Monocytes (%) (Auto) 8 0-12 % Eosinophils (%) (Auto) 2 0-10 % Basophils (%) (Auto) 1 0-10 % Neutrophils # (Auto) 7.3 1.8-7.8 10^3/uL Lymphocytes # (Auto) 2.4 1.0-4.0 10^3/uL Monocytes # (Auto) 0.9 0.0-1.0 10^3/uL Eosinophils # (Auto) 0.3 0.0-0.3 10^3/uL Basophils # (Auto) 0.1 0.0-0.1 10^3/uL Immature Granulocyte # (Auto) 0.0 0.0-0.1 10^3/uL Prothrombin Time 13.3 12.2-14.7 SEC INR Comment 1.0 0.8-1.4 Activated Partial Thromboplast Time 30 24-35 SEC D-Dimer 0.73 H 0.00-0.49 UG/ML Sodium Level 141 135-145 MMOL/L Potassium Level 3.5 L 3.6-5.0 MMOL/L Chloride Level 105 98-107 MMOL/L Carbon Dioxide Level 21 21-32 MMOL/L Anion Gap 15 H 5-14 MMOL/L Blood Urea Nitrogen 7 7-18 MG/DL Creatinine 1.18 0.60-1.30 MG/DL Estimat Glomerular Filtration Rate 56 BUN/Creatinine Ratio 6 Glucose Level 116 H 70-105 MG/DL Calcium Level 9.4 8.5-10.1 MG/DL Corrected Calcium 9.2 8.5-10.1 MG/DL Magnesium Level 1.9 1.6-2.4 MG/DL Total Bilirubin 1.5 H 0.1-1.0 MG/DL Aspartate Amino Transf (AST/SGOT) 12 5-34 U/L Alanine Aminotransferase (ALT/SGPT) 16 0-55 U/L Alkaline Phosphatase 65 40-136 U/L Myoglobin 29.5 10.0-92.0 NG/ML Troponin I < 0.028 < 0.028 <0.028 NG/ML Total Protein 7.2 6.4-8.2 GM/DL Albumin 4.2 3.2-4.5 GM/DL Lipase 12 8-78 U/L My Orders Orders - NOEMÍ CANO Ekg Tracing (12/20/21 22:36) Cbc With Automated Diff (12/20/21 22:36) Magnesium (12/20/21 22:36) Chest 1 View, Ap/Pa Only (12/20/21 22:36) Comprehensive Metabolic Panel (12/20/21 22:36) Myoglobin Serum (12/20/21 22:36) Protime With Inr (12/20/21 22:36) Partial Thromboplastin Time (12/20/21 22:36) O2 (12/20/21 22:36) Monitor-Rhythm Ecg Trace Only (12/20/21 22:36) Ed Iv/Invasive Line Start (12/20/21 22:36) Troponin I [place] (12/20/21 22:36) Lipase (12/20/21 22:47) Fibrin Degradation Products (12/20/21 22:47) Troponin I [place] (12/20/21 23:41) Ketorolac Injection (Toradol Injection) (12/21/21 00:00) Pantoprazole Injection (Protonix Injecti (12/21/21 00:00) Medications Given in ED Current Medications Medications Dose Ordered Sig/Cristina Route Start Time Stop Time Status Last Admin Dose Admin Ketorolac Tromethamine 30 mg ONCE ONCE IVP 12/21/21 00:00 12/21/21 00:01 DC 12/21/21 00:03 30 MG Pantoprazole 40 mg ONCE ONCE IV 12/21/21 00:00 12/21/21 00:01 DC 12/21/21 00:02 40 MG Vital Signs/I&O 12/20/21 12/21/21 22:35 01:02 Temp 36.6 36.6 Pulse 83 69 Resp 16 16 B/P (MAP) 143/111 (122) 139/92 Pulse Ox 99 99 O2 Delivery Room Air Room Air Progress Progress Note #1: Time: 22:51 Progress Note Patient is comfortable and does not want a thing for her pain right now other than to lay still. We will get a get a chest x-ray to rule out covert pneumonia. She does not have any bronchospasms auscultated. She does not have a murmur or irregular heartbeat. She sounds like she is describing pleuritic chest pain. If her first troponin is negative then we will give her a shot of Toradol. If she is having enough pain then we can always give her some morphine but she has declined at this time. She does not a gallbladder but says she is having pain to her back we will also consider the possibility of a pancreatitis and check a lipase. She is not having any symptoms of GERD. Will check labs. She already received aspirin. Plan to repeat a delta troponin in 1 hour which would be greater than 6 hours after start of this episode. Because she is on HRT she has intermediate risk for pulmonary embolism. No evidence of DVT. No tachycardia. No hemoptysis or cough. Denies shortness of air. Well's score for pulmonary embolism: 0.0 points; Low risk group: 1.3% chance of PE in an ED population. PERC 2 criteria: If any criteria are positive, the PERC rule cannot be used to rule out PE in this patient. Progress Note #2: Time: 23:50 Progress Note Discussed the possibility albeit remote of a blood clot. The patient states that she remembers right before all this started she woke up in the night choking on some acid reflux and has had to increase her esomeprazole recently. She said after having COVID her reflux has been out of control. This makes it more likely she is having a pleuritic type pain related to her reflux. We will give her some Protonix and Toradol. We have encouraged her to double up on her PPI and will put her on Carafate for couple weeks. Patient is in agreement with this plan. We will do a delta troponin and if it is okay then she can go home. We will give her a follow-up number to her general surgeon in case her symptoms or not improving with Carafate and PPI for possible endoscopy. We will also give her a number for cardiology she can follow-up in the next 2 to 4 weeks for further examination and risk stratification. Initial ECG Impression Date: Dec 20, 2021 Initial ECG Impression Time: 22:57 Initial ECG Rate: 78 Initial ECG Rhythm: Normal Sinus Initial ECG Intervals: Normal Initial ECG Impression: Normal Initial ECG Comparisson: No Previous ECG Available Comment Normal sinus rhythm without clinically relevant ST elevation or depression. There is a low amplitude and the inferior lead aVF and V3 and likely malposition between leads V2 and V3 but otherwise unremarkable EKG. Diagnostic Imaging Diagonstic Imaging: Xray Plain Films/CT/US/NM/MRI: chest Comments No acute cardiopulmonary process on 1 view chest x-ray. Reviewed: Reviewed by Me Departure Impression Primary Impression: Pleuritic chest pain Additional Impression: GERD (gastroesophageal reflux disease) Qualified Codes: K21.9 - Gastro-esophageal reflux disease without esophagitis Disposition: HOME, SELF-CARE Condition: Stable Departure-Patient Inst. Decision time for Depature: 00:48 Referrals: LANE ANDERSON BASHAR J MD ORENDER, JACQUELINE S DO (PCP/Family) Primary Care Physician Patient Instructions: Pleuritic Chest Pain (DC) Add. Discharge Instructions: Naproxen 500 mg twice a day until chest pain resolved. Double up on your PPI Nexium. Carafate half hour before meals and at bedtime. If you are still having significant reflux then follow-up with Dr. Anderson by calling for an appointment. Call Dr. Arias, cardiology for a follow-up appointment in the next 2 to 4 weeks to discuss cardiac risk factors and make a clinic visit. All discharge instructions reviewed with patient and/or family. Voiced understanding. Scripts Naproxen (Naprosyn) 500 Mg Tablet 500 MG PO BID for 14 Days, #30 TAB 0 Refills Prov: NOEMÍ CANO 12/21/21 Sucralfate (Carafate) 1 Gram Tablet 1 GM PO QIDACHS for 14 Days, #56 TAB 0 Refills Prov: NOEMÍ CANO 12/21/21 Copy Copies To 1: LANE ANDERSON DO; LESLIE ARIAS MD; OMAIRA LUNA TITUS J Dec 20, 2021 22:56
[2021-12-20 23:02] LABS: ALBUMIN 4.2 GM/DL (3.2-4.5); POTASSIUM 3.5 MMOL/L (3.6-5.0)
[2021-12-20 23:03] LABS: CALCIUM 9.4 MG/DL (8.5-10.1)
[2021-12-20 23:05] LABS: PROTHROMBIN TIME PATIENT 13.3 SEC (12.2-14.7); TOTAL PROTEIN 7.2 GM/DL (6.4-8.2)
[2021-12-20 23:06] LABS: BILIRUBIN,TOTAL 1.5 MG/DL (0.1-1.0)
[2021-12-20 23:08] LABS: CREATININE SERUM 1.18 MG/DL (0.60-1.30)
[2021-12-20 23:11] LABS: MAGNESIUM 1.9 MG/DL (1.6-2.4)
[2021-12-20 23:12] LABS: LIPASE 12 U/L (8-78)
[2021-12-21] MEDS ORDERED: KETOROLAC 30 MG/ML VIAL IVP ONE
[2021-12-21] MEDS ORDERED: PANTOPRAZOLE 40 MG (PROTONIX) VIAL IV ONE
[2021-12-21] MEDS ORDERED: NAPR-1071 PO (00:53)
[2021-12-21] MEDS ORDERED: SUCR1TAB36 PO (00:53)
[2021-12-21 01:02] VITALS: BP 139/92
--- NOTE | 2021-12-21 07:41 | Diagnostic Imaging Report ---
CHEST 1 VIEW, AP/PA ONLY Indication: Chest pain. Comparison: 05/30/2020 Findings: No focal airspace disease in the visualized lungs. Please note that the posterior lower lobes are poorly evaluated by portable radiography. No pleural effusion or pneumothorax. Normal cardiomediastinal silhouette. Impression: 1. No acute cardiopulmonary process by portable radiography. Dictated by: Dictated on workstation # [id number]
== END 2021-12-21 01:03 | disposition home or self-care (01) ==
LOC: EDUNIT# 22:33 → ER 22:34
DX: R07.81 Pleurodynia (principal); K21.9 Gastro-esophageal reflux disease without esophagitis; Z86.16 Personal history of COVID-19
CPT/HCPCS: 36415; 71045; 80053; 83690; 83735; 83874; 84484; 85025; 85379; 85610; 85730; 93005; 93041

== ENCOUNTER → 2022-01-26 | Outpatient (CLI) | payer BC ==
[~2022-01-26] MED LIST changes: +NAPR-1071 PO; +SUCR1TAB36 PO
--- NOTE | 2022-01-26 12:32 | Diagnostic Imaging Report ---
Indication: Routine screening. Comparison is made prior mammogram 06/30/2020 and 04/24/2019. 2-D and 3-D bilateral screening mammography was performed with CAD. CAD is utilized. The current study was also evaluated with a Computer Aided Detection (CAD) system. Scattered fibroglandular densities are identified bilaterally. The parenchymal pattern is stable. No mass or malignant-appearing microcalcifications are seen. Axillae are unremarkable. IMPRESSION: BI-RADS Category 1 No mammographic features suspicious for malignancy are identified. ACR BI-RADS Category 1: Negative. Result letter will be mailed to the patient. Note: At least 10% of breast cancer is not imaged by mammography. Dictated by: Dictated on workstation # [id number]
== END ==
LOC: RAD 07:32
PROVIDERS: ATTEND Nurse Practitioner Family
DX: Z12.31 Encounter for screening mammogram for malignant neoplasm of breast (principal)
CPT/HCPCS: 77063; 77067